=== PATIENT | female | born 1975 | race Two or more races ===

== ENCOUNTER 2022-07-23 08:05 | Outpatient (REF) | payer OTHER, SELFPAY ==
--- NOTE | 2022-07-23 08:15 | CRLHL7_ITS ---
For Patients: As a result of the Century Cures Act, medical imaging exams and procedure reports are released immediately into your electronic medical record. You may view this report before your referring provider. If you have questions, please contact your health care provider. BILATERAL SCREENING MAMMOGRAM WITH COMPUTER-AIDED DETECTION AND TOMOSYNTHESIS TECHNIQUE: CC and MLO views were obtained. These mammographic images have been obtained using full-field digital technique. These mammographic images were interpreted with the benefit of computer-aided detection. Breast Tomosynthesis was used in this interpretation. COMPARISON FILM: 08/19/20, 11/29/17, 06/02/16. FINDINGS: The breasts are heterogeneously dense, which may obscure small masses IMPRESSION: There is no radiographic evidence for malignancy. ASSESSMENT: BI-RADS Category 1: Negative RECOMMENDATION: Routine screening mammogram in 1 year. A lay language report of this examination will be provided to the patient. Luc Manjarrez M.D. Diagnostic Radiologist [email or web address] DIANA/Dictated by: Luc Manjarrez MD @ 07/23/2022 9:15:00 AM (Electronically Signed)
== END 2022-07-23 08:06 | disposition home or self-care (01) ==
LOC: MAMMO 08:05
PROVIDERS: PCP Nurse Practitioner Family; Visit Provider Nurse Practitioner Family
DX: Z12.31 Encounter for screening mammogram for malignant neoplasm of breast (principal); R92.2 Inconclusive mammogram
CPT/HCPCS: 77063; 77067

== ENCOUNTER 2024-05-24 08:59 | Outpatient (CLI) | payer MEDICAID, SELFPAY | END 2024-05-24 09:00 | disposition home or self-care (01) | PROVIDERS: PCP Family Medicine; Visit Provider Family Medicine | DX: E11.9 Type 2 diabetes mellitus without complications (principal); E78.5 Hyperlipidemia, unspecified; E66.9 Obesity, unspecified | CPT/HCPCS: 80053; 80061; 82043; 82570; T1013 ==

== ENCOUNTER 2025-01-03 08:24 | Outpatient (CLI) | payer MEDICAID, SELFPAY | END 2025-01-03 08:25 | disposition home or self-care (01) | LOC: NFLDREF 01-07 03:48 | PROVIDERS: PCP Family Medicine; Referring Provider Family Medicine; Visit Provider Family Medicine | DX: E11.9 Type 2 diabetes mellitus without complications (principal) | CPT/HCPCS: 80053; 80061; 82043; 82570 ==

== ENCOUNTER 2025-02-08 08:04 | Outpatient (CLI) | payer MEDICAID, SELFPAY ==
--- NOTE | 2025-02-08 09:35 | P.ANES_ITS ---
Anesthesia Charges Start Date/Time Anesthesia Start Date: 02/08/25 Anesthesia Start Time: 09:00 Stop Date/Time Anesthesia Stop Date: 02/08/25 Anesthesia Stop Time: 09:33 Coding CPT Codes CPT Codes: VICKI LWR INTST NDSC NOS - [id number] ([id number]) P2 - PATIENT W/MILD SYST DISEASE, QK - SWEDISH MASSEUSE 2-4 CNCRNT ANES PROC, QX - STAY CUTTER SVC W/ MD MED DIRECTION
--- NOTE | 2025-02-08 09:35 | W.ANESCHARGE ---
Anesthesia Charges Start Date/Time Anesthesia Start Date: 02/08/25 Anesthesia Start Time: 09:00 Stop Date/Time Anesthesia Stop Date: 02/08/25 Anesthesia Stop Time: 09:33 Coding CPT Codes CPT Codes: VICKI LWR INTST NDSC NOS - [id number] ([id number]) P2 - PATIENT W/MILD SYST DISEASE, QK - SENIOR CONSULTANT 2-4 CNCRNT ANES PROC, QX - SAMPLE WASHER SVC W/ MD MED DIRECTION
--- NOTE | 2025-02-08 09:39 | P.ANES_ITS ---
Anesthesia Charges Start Date/Time Anesthesia Start Date: 02/08/25 Anesthesia Start Time: 09:00 Stop Date/Time Anesthesia Stop Date: 02/08/25 Anesthesia Stop Time: 09:33 Coding CPT Codes CPT Codes: VICKI LWR INTST NDSC NOS - [id number] ([id number]) P2 - PATIENT W/MILD SYST DISEASE, QK - AUDIO VISUAL COORDINATOR 2-4 CNCRNT ANES PROC, QX - FICTION AND NONFICTION AUTHOR SVC W/ MD MED DIRECTION
--- NOTE | 2025-02-08 09:39 | W.ANESCHARGE ---
Anesthesia Charges Start Date/Time Anesthesia Start Date: 02/08/25 Anesthesia Start Time: 09:00 Stop Date/Time Anesthesia Stop Date: 02/08/25 Anesthesia Stop Time: 09:33 Coding CPT Codes CPT Codes: VICKI LWR INTST NDSC NOS - [id number] ([id number]) P2 - PATIENT W/MILD SYST DISEASE, QK - SCREEN PRINTING EQUIPMENT SETTER 2-4 CNCRNT ANES PROC, QX - PROMOS EXECUTIVE PRODUCER SVC W/ MD MED DIRECTION
== END 2025-02-08 08:05 | disposition home or self-care (01) ==
LOC: OP CLINIC 08:07
PROVIDERS: PCP Family Medicine; Visit Provider Surgery
DX: Z12.11 Encounter for screening for malignant neoplasm of colon (principal); D12.0 Benign neoplasm of cecum; D12.3 Benign neoplasm of transverse colon; K63.5 Polyp of colon
CPT/HCPCS: 00811; 00812; 45385; 88305; T1013; J2704

== ENCOUNTER 2025-04-10 13:37 | Outpatient (CLI) | payer MEDICAID, SELFPAY ==
--- NOTE | 2025-04-10 14:00 | CRLHL7_ITS ---
For Patients: As a result of the Century Cures Act, medical imaging exams and procedure reports are released immediately into your electronic medical record. You may view this report before your referring provider. If you have questions, please contact your health care provider. INDICATION: BILATERAL SCREENING MAMMOGRAM, ASYMPTOMATIC 49 Y/O FEMALE Dictated by: Luc Manjarrez MD @ 04/12/2025 09:10:21 (Electronically Signed)
== END 2025-04-10 13:38 | disposition home or self-care (01) ==
LOC: MAMMO 13:38
PROVIDERS: PCP Family Medicine; Visit Provider Family Medicine
DX: Z12.31 Encounter for screening mammogram for malignant neoplasm of breast (principal); R92.333 Mammographic heterogeneous density, bilateral breasts; N63.10 Unspecified lump in the right breast, unspecified quadrant; N63.20 Unspecified lump in the left breast, unspecified quadrant
CPT/HCPCS: 77063; 77067; T1013